=== PATIENT | male | born 1940 | race Caucasian/White ===

== ENCOUNTER → 2020-01-19 | Outpatient (CLI) | payer MEDICARE ==
[2020-01-19 12:21] VITALS: BP 121/59
--- NOTE | 2020-01-19 12:21 | ER [facility] ASSESSMENT REPORT ---
Intake - In the Last 14 days Have you traveled outside [place]?: No Have you been in close contact with someone CONFIRMED: No Worked in Healthcare?: No - Symptoms Subjective Fever([place] feverish): No Chills: No Muscule Aches: Yes Runny Nose: Yes Sore Throat: No Cough (New or worsening chronic cough): No Shortness of breath: No Nausea or Vomiting: No Headache: No Abdominal Pain: No Diarrhea(3 or more loose stools in last 24 hours): No - Do you have any of the following Chronic lung disease: Asthma or emphysema or COPD: No Cystic Fibrosis: No Diabetes: No High Blood Pressure: No Cardiovascular Disease: Yes Chronic Kidney Disease: No Chronic Liver Disease: No Chronic blood disorder like Sickle Cell Disease: No Weak immune system due to disease or medication: Yes Immune System Comment: thyroid Neurologic condition that limits movement: No Developmental delay - Moderate to Severe: No Recent (within past 2 weeks) or current : No Morbid Obesity (>100 pounds over ideal weight): No - Objective Temperature: 98.0 F Pulse Rate: 78 Respiratory Rate: 18 Blood Pressure: 121/59 O2 Sat by Pulse Oximetry: 95 Objective: Given above, testing performed: If Testing Performed: Test Specimen Type Sent to General - General Information source: Patient Notes: She presents to the [facility] for screening for the coronavirus. Patient reports chills body aches for the past 2 days. Patient does have a history of a heart murmur and thyroid disease. Patient is a former smoker. - Related Data Allergies/Adverse Reactions: No Known Allergies Allergy (Unverified 07/26/15 08:29) Past Medical History - General Information source: Patient - Social History Smoking Status: Former Smoker Family History: Reviewed & Not Pertinent - Past Medical History Cardiac Medical History: Denies: Hx Coronary Artery Disease, Hx Heart Attack, Hx Hypertension Pulmonary Medical History: Denies: Hx Asthma, Hx Bronchitis, Hx COPD, Hx Pneumonia Neurological Medical History: Denies: Hx Cerebrovascular Accident, Hx Seizures Renal/ Medical History: Reports: Hx Kidney Stones GI Medical History: Denies: Hx Hepatitis, Hx Hiatal Hernia, Hx Ulcer Musculoskeletal Medical History: Reports Hx Arthritis - osteoarthritis Psychiatric Medical History: Reports: Hx Depression Infectious Medical History: Denies: Hx Hepatitis Past Surgical History: Denies: Hx Open Heart Surgery, Hx Pacemaker Physical Exam - Notes Notes: The patient was evaluated during the global Covid 19 pandemic, and that diagnosis was suspected/considered upon their initial presentation. Their evaluation, treatment and testing was consistent with current guidelines for p atients who present with complaints or symptoms that may be related to Covid 19. Full physical exam could not be performed due to covid 19 isolation protocols. Constitutional: Nontoxic appearance, no acute distress Eyes: Nonicteric, extraocular movements intact, sclera clear Cardiovascular: Heart rate and rhythm regular, no JVD Respiratory: Breath sounds clear bilaterally, nonlabored breathing, no use of accessory muscles, no tachypnea Gastrointestinal: Abdomen not distended Muculoskeletal: Moves all extremities well Skin: Normal color Neuro: Awake alert oriented, normal speech Psych: Normal mood and affect Diagnostic Results Laboratory Results: Patient presents with upper respiratory symptoms worrisome for possible Covid 19. Patient does not have emergency worrying symptoms such as difficulty breathing, shortness of breath, chest pain, pressure, confusion or cyanosis. Patient appears suitable for discharge as vital signs are stable and patient is nontoxic in appearance. Good return precautions have been discussed with patient, patient verbalized understanding and is agreeable with discharge plan of care at this time. Patient Education/Counseling Counseling/Education: Patient was provided with discharge information including: As a person under investigation for Covid 19, the [place] department of Health and Human Services, division of public health advises you to adhere to the following guidance until your test results are reported to you. If your test result is positive, you will receive additional information from your provider and your local health department at that time. Remain at home until you are cleared by the health provider or public health authorities. Keep a log of visitors to your home, notify any visitors to your home of your isolation status. If you plan to move to a new address or leave the county, notify the local health department in your County. Call your doctor or seek care if you have an urgent medical need. Before seeking medical care, call ahead to get instructions from the provider before arriving at the medical office clinic or hospital. Notify them that you are being tested for the virus that causes Covid 19 so that arrangements can be made, as necessary, to prevent transmission to others in the healthcare setting. Next, notify the local health department in your county. If a medical emergency arises and you need to call 911, inform the first responders that you are being tested for the virus that causes Covid 19. Next, notify the local health department in your county. [facility] Discharge - Discharge Clinical Impression: Encounter for screening laboratory testing for COVID-19 virus Condition: Stable Disposition: Home; Selfcare
[2020-01-19 14:46] LABS: A TYPE INFLUENZA AG NEGATIVE (NEGATIVE); B INFLUENZA AG NEGATIVE (NEGATIVE)
== END ==
LOC: RDC 11:39
PROVIDERS: ATTEND Nurse Practitioner Family
DX: Z20.828 Contact with and (suspected) exposure to other viral communicable diseases (principal); R68.83 Chills (without fever); M79.10 Myalgia, unspecified site; R09.89 Other specified symptoms and signs involving the circulatory and respiratory systems; E07.9 Disorder of thyroid, unspecified; R01.1 Cardiac murmur, unspecified; M19.90 Unspecified osteoarthritis, unspecified site; Z87.891 Personal history of nicotine dependence
CPT/HCPCS: 87804; U0003; C9803; 87635

== ENCOUNTER 2020-02-15 18:17 | Observation (INO) | payer MEDICARE ==
--- NOTE | 2020-02-15 18:54 | ER Document Report ---
ED Medical Screen (RME) - General Chief Complaint: Weakness Stated Complaint: WEAKNESS,NECK PAIN Time Seen by Provider: 02/15/20 18:41 Primary Care Provider: CAROL YEE MD [Primary Care Provider] - Follow up as needed Information source: Patient Notes: Patient presents complaining of a 10 pound weight loss over the past 2 months. Patient also reports problems with increased sleepiness. Patient reports decreased appetite and abdominal pain for the past 4 days. Patient reports chills at home and reports temperature of 100.3. Patient also complains of headache and stiff neck for the past 2 to 3 days. 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 Patient did recently test positive for Covid early last month. I have greeted and performed a rapid initial assessment of this patient. A comprehensive ED assessment and evaluation of the patient, analysis of test results and completion of the medical decision making process will be conducted by additional ED providers. TRAVEL OUTSIDE OF THE [place] IN LAST 30 DAYS: No - Related Data Allergies/Adverse Reactions: No Known Allergies Allergy (Unverified 07/26/15 08:29) Past Medical History - Past Medical History Cardiac Medical History: Denies: Hx Coronary Artery Disease, Hx Heart Attack, Hx Hypertension Pulmonary Medical History: Denies: Hx Asthma, Hx Bronchitis, Hx COPD, Hx Pneumonia Neurological Medical History: Denies: Hx Cerebrovascular Accident, Hx Seizures Renal/ Medical History: Reports: Hx Kidney Stones GI Medical History: Denies: Hx Hepatitis, Hx Hiatal Hernia, Hx Ulcer Musculoskeltal Medical History: Reports Hx Arthritis - osteoarthritis Psychiatric Medical History: Reports: Hx Depression Infectious Medical History: Denies: Hx Hepatitis Past Surgical History: Denies: Hx Open Heart Surgery, Hx Pacemaker - Immunizations Hx Diphtheria, Pertussis, Tetanus Vaccination: Yes Physical Exam - Vital signs Vitals: Temp Pulse Resp BP Pulse Ox 98.5 F 120 H 18 141/57 H 98 02/15/20 18:24 02/15/20 18:24 02/15/20 18:24 02/15/20 18:24 02/15/20 18:24 - General General appearance: Alert Notes: periumbilical tenderness, patient with full range of motion to the neck Course - Vital Signs Vital signs: Temp Pulse Resp BP Pulse Ox 98.5 F 120 H 18 141/57 H 98 02/15/20 18:24 02/15/20 18:24 02/15/20 18:24 02/15/20 18:24 02/15/20 18:24 Doctor's Discharge - Discharge Referrals: CAROL YEE MD [Primary Care Provider] - Follow up as needed
--- NOTE | 2020-02-15 19:35 | RADIOLOGY REPORT (SQ) ---
EXAM DESCRIPTION: ACUTE ABDOMEN SERIES IMAGES COMPLETED DATE/TIME: 02/15/2020 7:18 pm REASON FOR STUDY: abd pain, tachycardia, wt loss, hx covid COMPARISON: 10/26/2012 NUMBER OF VIEWS: Three views. TECHNIQUE: Frontal chest, supine abdomen and upright/decubitus abdomen radiographic images acquired. LIMITATIONS: None. FINDINGS: CHEST: Lungs clear of infiltrates. FREE AIR: None. No abnormal gas collections. BOWEL GAS PATTERN: No definite pathologically dilated loops of bowel. Nonspecific bowel gas pattern. Formed stool throughout the colon. CALCIFICATIONS: Likely bilateral renal stones. Largest on the left measuring approximately 7 mm. HARDWARE: Surgical clips overlie bilateral upper abdomen. Chain elizabeth the hemiabdomen. Ovoid dens ity overlies left hemipelvis, likely ingested pill. SOFT TISSUES: No gross mass or suggestion of organomegaly. BONES: No acute bony abnormality. Lower lumbar spondylosis and facet arthropathy. OTHER: No other significant finding. IMPRESSION: 1. No evidence of intestinal obstruction or other acute intra-abdominal process. 2. Formed stool throughout the colon suggestive of constipation. TECHNICAL DOCUMENTATION: JOB ID: [id number] 2010 [employer]- All Rights Reserved Reading location - IP/workstation name: [email or web address]
[2020-02-15 21:02] LABS: ABSOLUTE BASOPHILS # (AUTO) 0.1 10^3/uL (0.0-0.2); ABSOLUTE EOSINOPHILS # (AUTO) 0.1 10^3/uL (0.0-0.6); ABSOLUTE LYMPHOCYTES (AUTO) 0.9 10^3/uL (0.5-4.7); ABSOLUTE MONOCYTES (AUTO) 0.7 10^3/uL (0.1-1.4); ABSOLUTE NEUT (AUTO) 5.8 10^3/uL (1.7-8.2); BASOPHILS % (AUTO) 1.1 % (0-2); EOSINOPHILS % (AUTO) 1.4 % (0-6); HEMATOCRIT 37.7 % (37.9-51.0); HEMOGLOBIN 12.5 g/dL (13.5-17.0); MEAN CORPUSCULAR HEMOGLOBIN 32.6 pg (27.0-33.4); MEAN CORPUSCULAR HGB CONC 33.2 g/dL (32.0-36.0); MEAN CORPUSCULAR VOLUME 98 fl (80-97); MONOCYTES % (AUTO) 8.6 % (3-13); PLATELET COUNT 191 10^3/uL (150-450); RED BLOOD COUNT 3.84 10^6/uL (4.35-5.55); RED CELL DISTRIBUTION WIDTH 13.8 % (11.5-14.0); SEGMENTED NEUTROPHILS % (AUTO) 76.9 % (42-78); TOTAL CELLS COUNTED % (AUTO) 100 %; WHITE BLOOD COUNT 7.6 10^3/uL (4.0-10.5)
[2020-02-15] MEDS ORDERED: ACETAMINOPHEN 325 MG TABLET PO ONE (21:06)
[2020-02-15] MEDS ORDERED: RINGERS SOLUTION,LACTATED 500 ML IV ONE (21:15)
--- NOTE | 2020-02-15 21:15 | ER Document Report ---
ED Dizziness/Weakness - General Chief Complaint: Weakness Stated Complaint: WEAKNESS,NECK PAIN Time Seen by Provider: 02/15/20 18:41 Primary Care Provider: CAROL YEE MD [Primary Care Provider] - Follow up as needed Notes: Patient is a 80-year-old male who presents to the emergency department with the chief complaint of generalized weakness and generally not feeling well. Patient also reports neck pain and head pain. Patient states that he had a symptoms about a week ago. About a month ago, the patient was diagnosed with COVID-19. Patient states that he only had chills at that time. Patient states that over the past 3 days, he has had a decreased appetite. States that he has not been eating or drinking as much as he should. Patient has a history of hypertension, bladder cancer, heart murmur and gastric bypass surgery. Patient states that his neck pain feels similar to when he had viral meningitis. Patient also has history of kidney stones. He denies any back pain. TRAVEL OUTSIDE OF THE [place] IN LAST 30 DAYS: No - Related Data Allergies/Adverse Reactions: No Known Allergies Allergy (Verified 02/15/20 20:55) Past Medical History - General Information source: Patient - Social History Smoking Status: Never Smoker Family History: Reviewed & Not Pertinent Patient has homicidal ideation: No - Past Medical History Cardiac Medical History: Denies: Hx Coronary Artery Disease, Hx Heart Attack, Hx Hypertension Pulmonary Medical History: Denies: Hx Asthma, Hx Bronchitis, Hx COPD, Hx Pneumonia Neurological Medical History: Denies: Hx Cerebrovascular Accident, Hx Seizures Renal/ Medical History: Reports: Hx Kidney Stones GI Medical History: Denies: Hx Hepatitis, Hx Hiatal Hernia, Hx Ulcer Musculoskeletal Medical History: Reports Hx Arthritis - osteoarthritis Psychiatric Medical History: Reports: Hx Depression Infectious Medical History: Denies: Hx Hepatitis Past Surgical History: Denies: Hx Open Heart Surgery, Hx Pacemaker - Immunizations Hx Diphtheria, Pertussis, Tetanus Vaccination: Yes Hx Pneumococcal Vaccination: 01/12/10 Review of Systems - Review of Systems Notes: REVIEW OF SYSTEMS: CONSTITUTIONAL : See HPI. EENT: Denies eye, ear, throat, or mouth pain, discharge, or symptoms. Denies nasal or sinus congestion. CARDIOVASCULAR: Denies chest pain. RESPIRATORY: See HPI. GASTROINTESTINAL: Denies nausea, vomiting, and diarrhea. Denies abdominal pain. Denies constipation. GENITOURINARY: Denies difficulty urinating, burning, blood in urine, urgency or frequency. MUSCULOSKELETAL: Denies neck and back pain. Denies joint pain or swelling. SKIN: Denies rash, itchiness, or lesions HEMATOLOGIC : Denies easy bruising or bleeding. LYMPHATIC: Denies swollen, painful, enlarged glands. NEUROLOGICAL: Denies no numbness or tingling denies weakness. Denies headache. Denies altered mental status. Denies alteration in speech. PSYCHIATRIC: Denies stress, anxiety, alteration in sleep patterns, or depression. All other systems reviewed and negative. Physical Exam - Vital signs Vitals: Temp Pulse Resp BP Pulse Ox 98.5 F 120 H 18 141/57 H 98 02/15/20 18:24 02/15/20 18:24 02/15/20 18:24 02/15/20 18:24 02/15/20 18:24 - Notes Notes: PHYSICAL EXAMINATION: GENERAL: Appears cachectic, no acute distress. HEAD: Normocephalic, atraumatic. EYES: PERRL, conjunctiva normal, all extraocular movements intact, sclera nonicteric ENT: Moist mucous membranes. NECK: Supple, no noticeable swelling, redness, rash. Normal range of motion. LUNGS: Equal breath sounds bilaterally and clear to auscultation. No wheezes rales or rhonchi. CARDIOVASCULAR: S1-S2, regular rate, regular rhythm. Radial pulses 2+, normal. ABDOMEN: Normoactive bowel sounds. Soft, nontender, no guarding, no rebound tenderness, and no masses palpated. EXTREMITIES: Normal strength and range of motion, no pitting or edema. No cyanosis. NEUROLOGICAL: Moves all extremities upon command. Strength 5/5 in all extremities. PSYCH: Normal mood, normal affect. SKIN: Warm, dry. No rash, lesions, ulcerations noted. Normal skin turgor. Course - Re-evaluation Re-evalutation: 02/16/20 01:25 CT of the abdomen pelvis shows that the patient has an obstructing kidney stone.It is 1.2 cm inside. And it is in the left distal ureter. He has some hydronephrosis. CT of the head shows no acute intracranial abnormalities. 02/16/20 01:53 Dr. Guo evaluated the patient and she does not believe that the patient needs a lumbar puncture. She agrees that it would be appropriate to have the patient observed overnight in the hospital. Will call the hospitalist. 02/16/20 02:40 Dr. Haney at bedside. The patient will be admitted for observation. The patient was evaluated during the global COVID-19 pandemic and that diagnosis was suspected/considered upon their initial presentation. Their evaluation, treatment and testing was consistent with current guidelines for patients who present with complaints or symptoms that may be related to COVID-19. - Vital Signs Vital signs: Temp Pulse Resp BP Pulse Ox 98.5 F 92 8 L 121/66 97 02/15/20 18:24 02/15/20 21:07 02/15/20 22:01 02/15/20 22:01 02/15/20 22:01 - Laboratory Result Diagrams: 02/15/20 20:44 02/15/20 20:44 Laboratory results interpreted by me: 02/15/20 02/15/20 02/15/20 20:44 20:44 20:44 RBC 3.84 L Hgb 12.5 L Hct 37.7 L MCV 98 H Lymph % (Auto) 12.0 L Potassium 5.1 H Chloride 108 H Carbon Dioxide 16 L BUN 35 H Creatinine 1.69 H Est GFR ( Amer) 48 L Est GFR (MDRD) Non-Af 39 L Magnesium 2.6 H TSH 7.00 H Free T4 0.66 L Free T3 pg/mL 1.87 L Urine Protein 02/15/20 21:56 RBC Hgb Hct MCV Lymph % (Auto) Potassium Chloride Carbon Dioxide BUN Creatinine Est GFR ( Amer) Est GFR (MDRD) Non-Af Magnesium TSH Free T4 Free T3 pg/mL Urine Protein 30 H Discharge - Discharge Clinical Impression: Weakness, Neck pain, Suspected COVID-19 virus infection Condition: Stable Disposition: ADMITTED OBSERVATION Admitting Provider: Dr. Jones Unit Admitted: Medical Floor - COVID test Referrals: CAROL YEE MD [Primary Care Provider] - Follow up as needed
[2020-02-15 21:16] LABS: ALBUMIN 4.3 g/dL (3.5-5.0); ALKALINE PHOSPHATASE 106 U/L (38-126); ANION GAP 13 (5-19); ASPARTATE AMINO TRANSFERASE 43 U/L (17-59); BILIRUBIN,DIRECT 0.2 mg/dL (0.0-0.4); BILIRUBIN,TOTAL 0.5 mg/dL (0.2-1.3); BLOOD UREA NITROGEN 35 mg/dL (7-20); CALCIUM 9.1 mg/dL (8.4-10.2); CARBON DIOXIDE 16 mmol/L (22-30); CHLORIDE 108 mmol/L (98-107); GLUCOSE 104 mg/dL (75-110); POTASSIUM 5.1 mmol/L (3.6-5.0); TOTAL PROTEIN 7.6 g/dL (6.3-8.2)
[2020-02-15 21:34] LABS: FREE T3 1.87 pg/mL (2.77-5.27); FREE T4 (FREE THYROXINE) 0.66 ng/dL (0.78-2.19)
[2020-02-15 22:11] LABS: APPEARANCE,URINE SLIGHTLY-CLOUDY; BILIRUBIN,URINE NEGATIVE (NEGATIVE); CALCIUM OXALATE CRYSTALS,URINE MODERATE /HPF; COLOR,URINE YELLOW; GLUCOSE, URINE NEGATIVE (NEGATIVE); KETONES,URINE NEGATIVE (NEGATIVE); LEUKOCYTE ESTERASE,URINE NEGATIVE (NEGATIVE); NITRITE,URINE NEGATIVE (NEGATIVE); PROTEIN,URINE 30 mg/dL (NEGATIVE); URINE SPECIFIC GRAVITY 1.016; UROBILINOGEN,URINE NEGATIVE mg/dL (<2.0)
--- NOTE | 2020-02-16 00:03 | RADIOLOGY REPORT (SQ) ---
CLINICAL INDICATION: abdominal pain; hx of bladder CA. . TECHNIQUE: Contrast enhanced spiral axial CT imaging was obtained of the abdomen and pelvis with multiplanar reconstructions. This exam was performed according to our departmental dose-optimization program, which includes automated exposure control, adjustment of the mA and/or kV according to patient size and/or use of iterative reconstruction techniques. COMPARISON: November 21, 2010. CORRELATION: None. FINDINGS: Abdomen: The lung bases definite chronic changes. No acute process. The heart is enlarged with coronary calcification. Calcified mediastinal lymph nodes. No pleural or pericardial fluid. The liver is homogeneous. The gallbladder is surgically absent. The pancreas is poorly seen but appears be of grossly normal contour. The spleen demonstrate old granulomatous disease. The adrenals are unremarkable. The kidneys demonstrate nonobstructing nephrolithiasis bilaterally, similar to prior. Largest calculus is seen on the left measuring approximately 6 mm, similar to prior. Normal right nephrogram. Delayed left nephrogram. New left hydronephrosis and hydroureter secondary to a large obstructing calculus distal left ureter just proximal to the UVJ measuring 1.2 cm, series 3 image 68. Tiny bladder calculus. There is no evidence of free air. No free fluid. No bulky adenopathy. Abdominal aorta is nonaneurysmal. Pelvis: The bowel is nonobstructed. The bowel is unopacified with oral contrast. Pelvic contents demonstrate enlargement of the prostate measuring 6.1 x 6.5 cm (previously 5.6 x 6.0 cm).. The appendix is not seen. Significant hard stool throughout the colon. Visualized bones demonstrate age-appropriate osteoarthritis. IMPRESSION: 1.2 cm obstructing calculus distal left ureter with moderate hydronephrosis hydroureter and a delayed nephrogram Progressive enlargement of the prostate.
[2020-02-16 00:13] LABS: A TYPE INFLUENZA AG NEGATIVE (NEGATIVE); B INFLUENZA AG NEGATIVE (NEGATIVE)
--- NOTE | 2020-02-16 01:13 | RADIOLOGY REPORT (SQ) ---
EXAM DESCRIPTION: CT HEAD WITHOUT IV CONTRAST COMPLETED DATE/TME: 02/15/2020 23:56 CLINICAL INDICATION: 80-year-old male with weakness. COMPARISON: None. TECHNIQUE: CT brain without contrast. This exam was performed according to our departmental dose optimization program which includes use of automated exposure control, adjustment of the mA and/or kV according to patient size and/or use of iterative reconstruction technique. FINDINGS: Multifocal regions of patchy hypoattenuation are present in a subcortical and periventricular deep white matter distribution, nonspecific; however, most likely represent small vessel ischemic disease, age indeterminate. The ventricles, sulci, and cisterns are symmetric and unremarkable. The modi-white matter differentiation is preserved. There is no mass effect, midline shift, intra- or extra-axial fluid collection/acute hemorrhage. The osseous structures are unremarkable. The paranasal sinuses and mastoid air cells are clear. IMPRESSION: 1. No acute intracranial abnormalities. Nonspecific white matter change most likely small vessel ischemic disease, age indeterminate. 2. CT is insensitive for early evaluation of acute stroke. If there is clinical concern for acute ischemia, an MRI may be considered.
[2020-02-16] MEDS ORDERED: ONDANSETRON HCL INJ/PF 4 MG/2 ML SDV IV PRN (02:46)
[2020-02-16] MEDS ORDERED: ACETAMINOPHEN 325 MG TABLET PO PRN (02:46)
[2020-02-16] MEDS: RINGERS SOLUTION,LACTATED 1,000 ML IV PRN ×3 (03:17→23:40)
[2020-02-16] MEDS: HEPARIN SOD (PORCINE) 5,000 UNIT/ML 1 ML VIAL SUBCUT SCH ×3 (06:03→21:48)
--- NOTE | 2020-02-16 07:37 | PDOC H&P ---
History of Present Illness Admission Date/PCP: 02/16/20 02:57 CAROL YEE MD Patient complains of: Generalized weakness, poor appetite, diarrhea History of Present Illness: EMI QUAN is a 80 year old male with a history of hypertension, depression and gastric bypass surgery who recently was diagnosed with COVID-19 about a month ago now presents with 1 week duration of generalized body weakness associated decreased appetite, nausea and few episodes of vomiting of ingested matter. Patient also reports that he has had 3 episodes of watery diarrhea which which has been for the past 24 hours. He states that he stayed in self- isolation with symptomatic management for 2 weeks following diagnosis of COVID- 19 and he reports he was seen closely for more than 2 weeks and was given clearance by health department 2 weeks back. Currently he denies any cough, shortness of breath, chest pain, fever, chills. Past Medical History Cardiac Medical History: Denies: Coronary Artery Disease, Myocardial Infarction, Hypertension Pulmonary Medical History: Denies: Asthma, Bronchitis, Chronic Obstructive Pulmonary Disease (COPD), Pneumonia Neurological Medical History: Denies: Seizures GI Medical History: Denies: Hepatitis, Hiatal Hernia Musculoskeltal Medical History: Reports: Arthritis - osteoarthritis Psychiatric Medical History: Reports: Depression Hematology: Reports: Anemia - BARIATRIC SURGERY Denies: Sickle Cell Disease Past Surgical History Past Surgical History: Denies: Pacemaker Social History Information Source: Patient Smoking Status: Never Smoker Hx Recreational Drug Use: No Hx Prescription Drug Abuse: No - Advance Directive Resuscitation Status: Full Code Family History Family History: Reviewed & Not Pertinent Parental Family History Reviewed: Yes Children Family History Reviewed: Yes Sibling(s) Family History Reviewed.: Yes Medication/Allergy Home Medications: Bupropion HCl [Wellbutrin Sr 150 mg Tablet] 1 tab PO Q12 07/09/14 Levothyroxine Sodium [Synthroid 0.112 mg Tablet] 112 mcg PO DAILY 07/09/14 Meloxicam [Mobic 15 mg Tablet] 15 mg PO DAILY 07/20/15 Omeprazole 20 mg PO DAILY 07/20/15 Sertraline HCl [Zoloft] 100 mg PO DAILY 07/20/15 Sod/Pot/K Cit/Sod Cit/Cit Acid [Tricitrates Oral Solution] 5 ml PO DAILY 07/20/15 Allergies/Adverse Reactions: No Known Allergies Allergy (Verified 02/15/20 20:55) Review of Systems Constitutional: PRESENT: as per HPI Eyes: ABSENT: visual disturbances Ears: ABSENT: hearing changes Nose, Mouth, and Throat: ABSENT: as per HPI, headache(s), mouth pain, sore throat, vertigo, other Cardiovascular: ABSENT: chest pain, dyspnea on exertion, edema, orthropnea, palpitations Respiratory: ABSENT: cough, hemoptysis Gastrointestinal: PRESENT: as per HPI Genitourinary: ABSENT: dysuria, hematuria Musculoskeletal: ABSENT: joint swelling Integumentary: ABSENT: rash, wounds Neurological: ABSENT: abnormal gait, abnormal speech, confusion, dizziness, focal weakness, syncope Psychiatric: ABSENT: anxiety, depression, homidical ideation, suicidal ideation Endocrine: ABSENT: cold intolerance, heat intolerance, polydipsia, polyuria Hematologic/Lymphatic: ABSENT: easy bleeding, easy bruising Physical Exam Vital Signs: Temp Pulse Resp BP Pulse Ox 98.5 F 92 8 L 121/66 97 02/15/20 18:24 02/15/20 21:07 02/15/20 22:01 02/15/20 22:01 02/15/20 22:01 Intake & Output 02/14/20 02/15/20 02/16/20 06:59 06:59 06:59 Intake Total 500 Balance 500 Weight 51.5 kg Additional comments: GENERAL APPEARANCE: Alert and oriented x3, in no acute distress HEENT: Normocephalic and atraumatic. No scleral icterus. Dry oral mucosa NECK: Supple. No evidence of thyroid enlargement. No lymphadenopathy or tenderness. No JVD CHEST: Symmetric. Nontender to palpation. LUNGS: Breath sounds are equal and clear bilaterally. No wheezes, rhonchi, or rales. HEART: Regular rate and rhythm with normal S1 and S2. Heart +2 diastolic murmur best heard at apex ABDOMEN: Flat, moves with respiration, normoactive bowel sounds, soft, nontender, no guarding or rigidity No mass or organomegaly detected. No CVA tenderness EXTREMITIES: No cyanosis, clubbing, or edema. MUSCULOSKELETAL: No deformity, atrophy or swelling noted PSYCHIATRIC: The patient is awake, alert, and oriented x3. Recent and remote memory is intact. Appropriate mood and affect. SKIN: Warm, dry, and well perfused. No lesions or rashes are noted. NEUROLOGIC: No focal sensory or motor deficits are noted. Results Laboratory Results: 02/15/20 20:44 02/15/20 20:44 02/15/20 02/15/20 02/15/20 20:44 20:44 20:44 WBC 7.6 RBC 3.84 L Hgb 12.5 L Hct 37.7 L MCV 98 H MCH 32.6 MCHC 33.2 RDW 13.8 Plt Count 191 Seg Neutrophils % 76.9 Sodium 137.0 Potassium 5.1 H Chloride 108 H Carbon Dioxide 16 L Anion Gap 13 BUN 35 H Creatinine 1.69 H Est GFR ( Amer) 48 L Glucose 104 Calcium 9.1 Magnesium 2.6 H Total Bilirubin 0.5 AST 43 Alkaline Phosphatase 106 Total Protein 7.6 Albumin 4.3 Lipase 197.6 TSH 7.00 H Free T4 0.66 L Free T3 pg/mL 1.87 L Urine Color Urine Appearance Urine pH Ur Specific [place] Urine Protein Urine Glucose (UA) Urine Ketones Urine Blood Urine Nitrite Ur Leukocyte Esterase Urine WBC (Auto) 02/15/20 21:56 WBC RBC Hgb Hct MCV MCH MCHC RDW Plt Count Seg Neutrophils % Sodium Potassium Chloride Carbon Dioxide Anion Gap BUN Creatinine Est GFR ( Amer) Glucose Calcium Magnesium Total Bilirubin AST Alkaline Phosphatase Total Protein Albumin Lipase TSH Free T4 Free T3 pg/mL Urine Color YELLOW Urine Appearance SLIGHTLY-CLOUDY Urine pH 5.0 Ur Specific [place] 1.016 Urine Protein 30 H Urine Glucose (UA) NEGATIVE Urine Ketones NEGATIVE Urine Blood NEGATIVE Urine Nitrite NEGATIVE Ur Leukocyte Esterase NEGATIVE Urine WBC (Auto) 1 02/15/20 20:44 Troponin I 0.016 Impressions: Acute Abdomen Series 02/15/20 18:55 IMPRESSION: 1. No evidence of intestinal obstruction or other acute intra- abdominal process. 2. Formed stool throughout the colon suggestive of constipation. Abdomen/Pelvis CT 02/15/20 22:16 IMPRESSION: 1.2 cm obstructing calculus distal left ureter with moderate hydronephrosis hydroureter and a delayed nephrogram Progressive enlargement of the prostate. Head CT 02/15/20 23:56 IMPRESSION: 1. No acute intracranial abnormalities. Nonspecific white matter change most likely small vessel ischemic disease, age indeterminate. 2. CT is insensitive for early evaluation of acute stroke. If there is clinical concern for acute ischemia, an MRI may be considered. Assessment and Plan - Diagnosis (1) Acute kidney injury Is this a current diagnosis for this admission?: Yes Plan: Likely prerenal from GI loss due to nausea vomiting and diarrhea and poor oral intake BUN/creatinine on this encounter was 35/1.68, last creatinine in 2018 was normal We will hydrate with IV LR Avoid nephrotoxic's and renally dose medications Monitor renal indicis (2) Metabolic acidosis Is this a current diagnosis for this admission?: Yes Plan: Anion gap metabolic acidosis likely due to diarrhea Will correct underlying cause with IV hydration Continue to monitor BMP (3) History of 2019 novel coronavirus disease (COVID-19) Is this a current diagnosis for this admission?: Yes Plan: Patient had positive COVID-19 test a months ago Currently has no any respiratory symptoms Will continue supportive measures On the special enhanced airborne isolation (4) Ureteral calculus, left Is this a current diagnosis for this admission?: Yes Plan: CT abdomen showed a 1.2 cm nonobstructing left ureteral calculus with moderate hydronephrosis Due to the size being greater than 1 cm, will consider referral to urology on discharge (5) Heart murmur Is this a current diagnosis for this admission?: Yes Plan: Has audible +2 diastolic murmur best heard at apex Consider outpatient echocardiography if not already done by PCP Continue follow-up with outside cardiology - Time Time Spent with patient: 25-34 minutes Total Critical Time (Minutes): 45 Medications reviewed and adjusted accordingly: Yes Anticipated Discharge Disposition: Home, Self Care Anticipated Discharge Timeframe: within 48 hours - Inpatient Certification Based on my medical assessment, after consideration of the patient's comorbidities, presenting symptoms, or acuity I expect that the services needed warrant INPATIENT care.: Yes I certify that my determination is in accordance with my understanding of Medicare's requirements for reasonable and necessary INPATIENT services [42 CFR 412.3e].: Yes Medical Necessity: Need Close Monitoring Due to Risk of Patient Decompensation, Need For IV Fluids Post Hospital Care: D/C or Transfer Summary
[2020-02-16 07:38] LABS: ANION GAP 12 (5-19); BLOOD UREA NITROGEN 35 mg/dL (7-20); CARBON DIOXIDE 17 mmol/L (22-30); CHLORIDE 110 mmol/L (98-107); GLUCOSE 84 mg/dL (75-110); POTASSIUM 4.6 mmol/L (3.6-5.0)
[2020-02-16] MEDS ORDERED: FAMOTIDINE 20 MG TABLET PO SCH (10:00)
[2020-02-16] MEDS: FAMOTIDINE 20 MG TABLET PO SCH (11:18)
--- NOTE | 2020-02-16 17:14 | Progress Note ---
Provider Note Provider Note: Patient was seen by me on morning rounds. His main complaint was that he is experiencing a sharp shooting pain in the left advent region that lasts approximately 1 minute in duration and returns hourly. Denies change in vision or hearing. Does note some neck pain but demonstrates full ROM without meningeal signs on exam. On labs his TSH was found to be elevated with low Free T4. He has hx of hypothyroidism currently treated with Levothyroxine 125mcg daily. Reports compliance with medication daily. Increased dose to 150mcg daily. Suspect this may be contributing to presenting symptoms of generalized weakness.
--- NOTE | 2020-02-16 19:03 | EKG REPORT ---
SEVERITY:- ABNORMAL ECG - SINUS RHYTHM RBBB AND LAFB : Confirmed by: Bennett Bello MD 16-Feb-2020 19:02:49
[2020-02-16] MEDS: BUPROPION HCL 100 MG TABLET PO SCH (21:48)
[2020-02-17] MEDS: HEPARIN SOD (PORCINE) 5,000 UNIT/ML 1 ML VIAL SUBCUT SCH ×2 (05:09→14:06)
[2020-02-17] MEDS: BUPROPION HCL 100 MG TABLET PO SCH ×2 (05:10→14:06)
[2020-02-17] MEDS ORDERED: LEVOTHYROXINE SODIUM 0.15 MG TABLET PO SCH (06:00)
[2020-02-17] MEDS: RINGERS SOLUTION,LACTATED 1,000 ML IV PRN ×2 (06:40→14:06)
[2020-02-17 08:42] LABS: HEMATOCRIT 31.6 % (37.9-51.0); HEMOGLOBIN 10.5 g/dL (13.5-17.0); MEAN CORPUSCULAR HEMOGLOBIN 31.8 pg (27.0-33.4); MEAN CORPUSCULAR HGB CONC 33.3 g/dL (32.0-36.0); MEAN CORPUSCULAR VOLUME 96 fl (80-97); PLATELET COUNT 185 10^3/uL (150-450); RED BLOOD COUNT 3.31 10^6/uL (4.35-5.55); RED CELL DISTRIBUTION WIDTH 13.5 % (11.5-14.0); WHITE BLOOD COUNT 7.2 10^3/uL (4.0-10.5)
[2020-02-17 09:06] LABS: ANION GAP 8 (5-19); BLOOD UREA NITROGEN 29 mg/dL (7-20); CALCIUM 8.5 mg/dL (8.4-10.2); CARBON DIOXIDE 21 mmol/L (22-30); CHLORIDE 110 mmol/L (98-107); GLUCOSE 91 mg/dL (75-110); POTASSIUM 4.3 mmol/L (3.6-5.0)
[2020-02-17] MEDS: FAMOTIDINE 20 MG TABLET PO SCH (09:11)
[2020-02-17] MEDS ORDERED: FLUTICASONE NASAL SPRAY 50 MCG/SPRY 120 SPRAY/16 GM NASL SCH (10:00)
[2020-02-17] MEDS ORDERED: PANTOPRAZOLE SODIUM 20 MG TABLET.DR PO SCH (10:00)
[2020-02-17] MEDS ORDERED: CETIRIZINE 10 MG TABLET PO SCH (10:00)
[2020-02-17] MEDS ORDERED: AMLODIPINE BESYLATE 5 MG TABLET PO SCH (10:00)
[2020-02-17] MEDS ORDERED: MELOXICAM 15 MG TABLET PO SCH (10:00)
[2020-02-17] MEDS ORDERED: SERTRALINE HCL 50 MG TABLET PO SCH (10:00)
[2020-02-17] MEDS ORDERED: SERTRALINE HCL 250 MG PO SCH (10:00)
[2020-02-17] MEDS ORDERED: NORMAL SALINE 1000 ML 1,000 ML IV ONE (11:57)
--- NOTE | 2020-02-17 16:27 | PDOC DISCHARGE SUMMARY ---
Impression - Admit/DC Date/PCP Admission Date/Primary Care Provider: 02/16/20 02:57 CAROL YEE MD Discharge Date: 02/17/20 - Discharge Diagnosis (1) Hypothyroidism Is this a current diagnosis for this admission?: Yes (2) Weight loss Is this a current diagnosis for this admission?: Yes (3) Acute kidney injury Is this a current diagnosis for this admission?: Yes (4) History of 2019 novel coronavirus disease (COVID-19) Is this a current diagnosis for this admission?: Yes (5) Metabolic acidosis Is this a current diagnosis for this admission?: Yes (6) Ureteral calculus, left Is this a current diagnosis for this admission?: Yes (7) Weakness Is this a current diagnosis for this admission?: Yes - Assessment Summary: Shante Lane is a 80 year old male with PMHx of HTN, dperession, and hypothyroidism who was admitted to the hospital on 02/16/2020 for observation and further treatment of dehydration, acute kidney injury and metabolic acidosis. Patient initially presented with concerns regarding a one week history of generalized weakness with associated decreased appetite, nausea and emesis. 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 He also notes recent increase in looser stools though not liquid. Of note pt with history of positive COVID-19 test x1 month ago with mild symptoms, not requiring hospitalization and complete resolution of symptoms >2 weeks ago. Pt presentation without concern for current COVID infection. Abdomen/Pelvis CT notable for ureteral calculus, otherwise normal. Ct head without acute findings. Over course of hospitalization he received intravenous fluids with noted improvement in [place], metabolic acidosis and symptoms overall. Today reports baseline bowel movements, improvement in appetite, increase in overall energy and denies nausea or vomiting. Interestingly on admission he was found to have elevated TSH (7.0) and low FT4 (0.66). Pt with history of hypothyroidism with recent increase in dose x2 months to current dose of Levothyroxine .125mcg daily. Increased dose to Levothyroxine .150mcg daily. This may be a cause of his generalized weakness. Patient is to follow up with PCP for repeat thyroid studies and further adjustment of therapy as needed. Otherwise overall improvment in patient's symptoms at this time. He is cleared for discharge and happy to be going home. - Additional Information Resuscitation Status: Do Not Resuscitate Discharge Diet: Regular Discharge Activity: Activity As Tolerated Referrals: CAROL YEE MD [Primary Care Provider] - Follow up as needed Prescriptions: Levothyroxine Sodium [Synthroid 0.15 mg Tablet] 0.15 mg PO Q6AM #30 tablet Home Medications: Meloxicam [Mobic 15 mg Tablet] 15 mg PO DAILY 07/20/15 Omeprazole 20 mg PO DAILY 07/20/15 Sertraline HCl [Zoloft] 250 mg PO DAILY 07/20/15 Amlodipine Besylate [Norvasc 5 mg Tablet] 5 mg PO DAILY 02/16/20 B-Complex with Vitamin C [B-Complex with C] 1 each PO DAILY 02/16/20 Bupropion HCl [Wellbutrin 100 mg Tablet] 100 mg PO Q8 02/16/20 Calcitriol [Rocaltrol 0.25 mcg Capsule] 0.25 mcg PO DAILY 02/16/20 Calcium Carbonate/Vitamin D3 [Qc Calcium 600-Vit D3 400 Tab] 1 each PO DAILY 02/16/20 Cetirizine HCl [Zyrtec 10 mg Tablet] 10 mg PO DAILY 02/16/20 Fluticasone Propionate [Flonase Nasal [place] 50 Mcg/[place] 16 gm] 1 spray NASL DAILY 02/16/20 Multivit-Min/FA/Lycopen/Lutein [Men 50 Plus Multivitamin Tab] 1 each PO DAILY 02/16/20 Pyridoxine HCl (Vitamin B6) [Pyridoxine HCl] 50 mg PO DAILY 02/16/20 Tamsulosin HCl [Flomax] 0.4 mg PO DAILY 02/16/20 Tolterodine Tartrate [Tolterodine Tartrate ER] 4 mg PO DAILY 02/16/20 Zinc [Zinc Chelated] 50 mg PO DAILY 02/16/20 Levothyroxine Sodium [Synthroid 0.15 mg Tablet] 0.15 mg PO Q6AM #30 tablet 02/17/20 History of Present Illiness History of Present Illness: As per admitting HPI on 02/16/2020 "EMI QUAN is a 80 year old male with a history of hypertension, depression and gastric bypass surgery who recently was diagnosed with COVID-19 about a month ago now presents with 1 week duration of generalized body weakness associated decreased appetite, nausea and few episodes of vomiting of ingested matter. Patient also reports that he has had 3 episodes of watery diarrhea which which has been for the past 24 hours. He states that he stayed in self-isolation with symptomatic management for 2 weeks following diagnosis of COVID-19 and he reports he was seen closely for more than 2 weeks and was given clearance by health department 2 weeks back. Currently he denies any cough, shortness of breath, chest pain, fever, chills." Physical Exam Vital Signs: Temp Pulse Resp BP Pulse Ox 97.3 F 69 21 H 120/61 98 02/17/20 13:33 02/17/20 13:33 02/17/20 13:33 02/17/20 13:33 02/17/20 13:33 Intake & Output 02/16/20 02/17/20 02/18/20 06:59 06:59 06:59 Intake Total 865 3135 1935 Output Total 1425 200 Balance 865 1710 1735 Weight 51.5 kg 53.7 kg 56.5 kg General appearance: PRESENT: no acute distress, cooperative, well-developed Head exam: PRESENT: atraumatic, normocephalic Eye exam: PRESENT: conjunctiva pink, EOMI. ABSENT: scleral icterus Mouth exam: PRESENT: moist, tongue midline Neck exam: PRESENT: full ROM. ABSENT: JVD, lymphadenopathy, tenderness Respiratory exam: PRESENT: clear to auscultation nicole, symmetrical, unlabored. ABSENT: crackles, decreased breath sounds, tachypnea, wheezes Cardiovascular exam: PRESENT: diastolic murmur - 2+ at apex, RRR, +S1, +S2. ABSENT: systolic murmur, tachycardia GI/Abdominal exam: PRESENT: normal bowel sounds, soft. ABSENT: distended, firm, tenderness Extremities exam: PRESENT: full ROM. ABSENT: calf tenderness, clubbing, pedal edema Musculoskeletal exam: PRESENT: ambulatory, full ROM. ABSENT: deformity, dislocation Neurological exam: PRESENT: alert, awake, oriented to person, oriented to place, oriented to time, oriented to situation, CN II-XII grossly intact. ABSENT: altered, motor sensory deficit Psychiatric exam: PRESENT: appropriate affect, normal mood Skin exam: PRESENT: dry, intact, warm. ABSENT: rash, skin tears Results Laboratory Results: WBC 7.2 10^3/uL (4.0-10.5) 02/17/20 08:13 RBC 3.31 10^6/uL (4.35-5.55) L 02/17/20 08:13 Hgb 10.5 g/dL (13.5-17.0) L 02/17/20 08:13 Hct 31.6 % (37.9-51.0) L 02/17/20 08:13 MCV 96 fl (80-97) 02/17/20 08:13 MCH 31.8 pg (27.0-33.4) 02/17/20 08:13 MCHC 33.3 g/dL (32.0-36.0) 02/17/20 08:13 RDW 13.5 % (11.5-14.0) 02/17/20 08:13 Plt Count 185 10^3/uL (150-450) 02/17/20 08:13 Lymph % (Auto) 12.0 % (13-45) L 02/15/20 20:44 [place] % (Auto) 8.6 % (3-13) 02/15/20 20:44 Eos % (Auto) 1.4 % (0-6) 02/15/20 20:44 Baso % (Auto) 1.1 % (0-2) 02/15/20 20:44 Absolute Neuts (auto) 5.8 10^3/uL (1.7-8.2) 02/15/20 20:44 Absolute Lymphs (auto) 0.9 10^3/uL (0.5-4.7) 02/15/20 20:44 Absolute Monos (auto) 0.7 10^3/uL (0.1-1.4) 02/15/20 20:44 Absolute Eos (auto) 0.1 10^3/uL (0.0-0.6) 02/15/20 20:44 Absolute Basos (auto) 0.1 10^3/uL (0.0-0.2) 02/15/20 20:44 Seg Neutrophils % 76.9 % (42-78) 02/15/20 20:44 Sodium 138.8 mmol/L (137-145) 02/17/20 08:13 Potassium 4.3 mmol/L (3.6-5.0) 02/17/20 08:13 Chloride 110 mmol/L (98-107) H 02/17/20 08:13 Carbon Dioxide 21 mmol/L (22-30) L 02/17/20 08:13 Anion Gap 8 (5-19) 02/17/20 08:13 BUN 29 mg/dL (7-20) H 02/17/20 08:13 Creatinine 1.42 mg/dL (0.52-1.25) H 02/17/20 08:13 Est GFR ( Amer) 58 (>60) L 02/17/20 08:13 Est GFR (MDRD) Non-Af 48 (>60) L 02/17/20 08:13 Glucose 91 mg/dL (75-110) 02/17/20 08:13 Calcium 8.5 mg/dL (8.4-10.2) 02/17/20 08:13 Magnesium 2.6 mg/dL (1.6-2.3) H 02/15/20 20:44 Total Bilirubin 0.5 mg/dL (0.2-1.3) 02/15/20 20:44 Direct Bilirubin 0.2 mg/dL (0.0-0.4) 02/15/20 20:44 Neonat Total Bilirubin Not Reportable 02/15/20 20:44 Neonat Direct Bilirubin Not Reportable 02/15/20 20:44 Neonat Indirect Bili Not Reportable 02/15/20 20:44 AST 43 U/L (17-59) 02/15/20 20:44 ALT 36 U/L (<50) 02/15/20 20:44 Alkaline Phosphatase 106 U/L (38-126) 02/15/20 20:44 Troponin I < 0.012 ng/mL 02/17/20 13:28 Total Protein 7.6 g/dL (6.3-8.2) 02/15/20 20:44 Albumin 4.3 g/dL (3.5-5.0) 02/15/20 20:44 Lipase 197.6 U/L (23-300) 02/15/20 20:44 TSH 7.00 uIU/mL (0.47-4.68) H 02/15/20 20:44 Free T4 0.66 ng/dL (0.78-2.19) L 02/15/20 20:44 Free T3 pg/mL 1.87 pg/mL (2.77-5.27) L 02/15/20 20:44 Urine Color YELLOW 02/15/20 21:56 Urine Appearance SLIGHTLY-CLOUDY 02/15/20 21:56 Urine pH 5.0 (5.0-9.0) 02/15/20 21:56 Ur Specific [place] 1.016 02/15/20 21:56 Urine Protein 30 mg/dL (NEGATIVE) H 02/15/20 21:56 Urine Glucose (UA) NEGATIVE mg/dL (NEGATIVE) 02/15/20 21:56 Urine Ketones NEGATIVE mg/dL (NEGATIVE) 02/15/20 21:56 Urine Blood NEGATIVE (NEGATIVE) 02/15/20 21:56 Urine Nitrite NEGATIVE (NEGATIVE) 02/15/20 21:56 Urine Bilirubin NEGATIVE (NEGATIVE) 02/15/20 21:56 Urine Urobilinogen NEGATIVE mg/dL (<2.0) 02/15/20 21:56 Ur Leukocyte Esterase NEGATIVE (NEGATIVE) 02/15/20 21:56 Urine WBC (Auto) 1 /HPF 02/15/20 21:56 Calcium Oxalate Cr Auto MODERATE /HPF 02/15/20 21:56 Urine Mucus (Auto) RARE /LPF 02/15/20 21:56 Urine Ascorbic Acid NEGATIVE (NEGATIVE) 02/15/20 21:56 Influenza A (Rapid) NEGATIVE (NEGATIVE) 02/15/20 23:35 Influenza B (Rapid) NEGATIVE (NEGATIVE) 02/15/20 23:35 Group A Strep Rapid NEGATIVE (NEGATIVE) 02/15/20 21:01 02/15/20 02/17/20 20:44 13:28 Troponin I 0.016 < 0.012 EKG Comments: Sinus rhythm with rate of 71bpm. RBBB and LAFB Impressions: Acute Abdomen Series 02/15/20 18:55 IMPRESSION: 1. No evidence of intestinal obstruction or other acute intra-a bdominal process. 2. Formed stool throughout the colon suggestive of constipation. Abdomen/Pelvis CT 02/15/20 22:16 IMPRESSION: 1.2 cm obstructing calculus distal left ureter with moderate hydronephrosis hydroureter and a delayed nephrogram Progressive enlargement of the prostate. Head CT 02/15/20 23:56 IMPRESSION: 1. No acute intracranial abnormalities. Nonspecific white matter change most likely small vessel ischemic disease, age indeterminate. 2. CT is insensitive for early evaluation of acute stroke. If there is clinical concern for acute ischemia, an MRI may be considered. Plan Plan of Treatment: Generalized weakness: Likely secondary to dehydration secondary to GI loss. Potentially secondary to poorly controlled hypothyroidism as well. Improvement with fluids. Weightloss: Gradual weight loss over past serval months. Quite possibly may be secondary to change in lifestyle with increased movement daily at work. No acute findings on imaging, labs or physical exam. Consider follow up for further evaluation with PCP. Acute kidney injury: Likely due to GI loss/dehydration with recent hx of NV and loose stools. Admission BUN/CR: 35/1.68 -> 29/1.42 with IVF. Metabolic Acidosis: Low CO2 on chemistries likely secondary to dehydration. Improved with IVF. History COVID-19 infection: >1 month ago, mild sxs, not requiring hospitalization, low suspicion current infection, not tested, no tx necessary Ureteral calculus, left: Asymptomatic. IncidNonubstructing.ental finding. Pt made aware. Consider f/u with urology. Heart murmur: Audible +2 diastoic murmur at apex. F/u with PCP. F/u with cardiology, consider Echo. Hypothyroidism: With recent increase in Levothyroxine dose x2 months ago to .125mcg daily. TSH 7, FT4 0.66. Increase Levothyroxine .150mcg. Recommend f/u testing with PCP to ensure appropriate dose. Follow up with PCP within one week of discharge from hospital. Time Spent: Greater than 30 Minutes Stroke Is this a Stroke Patient?: No Acute Heart Failure Is this a Heart Failure Patient?: No
[2020-02-17 16:30] VITALS: BP 127/68
== END 2020-02-17 17:30 | disposition home or self-care (01) ==
LOC: ER 18:17 → EH 02-16 02:57 → ICU 02-16 06:14 → 4N 02-16 15:21
PROVIDERS: ADMIT Student in an Organized Health Care Education/Training Program; ATTEND Physician Assistant
DX: E03.9 Hypothyroidism, unspecified (principal); N17.9 Acute kidney failure, unspecified; R63.4 Abnormal weight loss; E87.2 Acidosis; N13.2 Hydronephrosis with renal and ureteral calculous obstruction; R53.1 Weakness; E86.0 Dehydration; R01.1 Cardiac murmur, unspecified; R51.9 Headache, unspecified; M54.2 Cervicalgia; M43.6 Torticollis; R50.9 Fever, unspecified; I10 Essential (primary) hypertension; Z86.19 Personal history of other infectious and parasitic diseases; F32.9 Major depressive disorder, single episode, unspecified; Z79.899 Other long term (current) drug therapy; Z66 Do not resuscitate; Z79.890 Hormone replacement therapy; Z98.84 Bariatric surgery status; M19.90 Unspecified osteoarthritis, unspecified site; Z87.442 Personal history of urinary calculi
CPT/HCPCS: 93005; 99285; 36415 ×3; 87040; 87070; 84439; 87880; 83690; 83735; 84443; 85025; 85027; 80048 ×2; 80053; 81001; 84484 ×2; 84481; 87804; 74022; 70450; 74177; 93010; G0378 ×2; A9270 ×13; J1644 ×2; J7030; J7120 ×3; J3490

== ENCOUNTER 2020-04-25 07:06 | Day surgery (SDC) | payer MEDICARE ==
[2020-04-25] MEDS ORDERED: PROPOFOL INJ 200 MG/20 ML VIAL IV ONE (07:12)
[2020-04-25 10:13] VITALS: BP 133/50
--- NOTE | 2020-04-25 11:44 | Operative Report ---
Operative Report DATE OF SURGERY: 04/25/20 Operative Report: The risk, benefits and alternatives of the procedure including the risk of bleeding, perforation requiring surgery have been explained to the patient in detail and informed consent is obtained. Patient is placed in left, lateral decubital position. Timeout was called. Propofol medication is administered. Rectal examination is done which did not reveal any masses, tears or fissures. An Olympus videoscope was introduced into the patient's rectum. Scope was then carefully advanced all the way to the cecum. The cecum was identified by the usual anatomical landmarks including the ileocecal valve as well as the appendiceal office. Photodocumentation is obtained. Scope was then sequentially pulled back via the various segments of the colon including the ascending colon, hepatic flexure, transverse colon, splenic flexure, descending colon and finally into the rectosigmoid portions of the colon. Retroflexion maneuver is performed. The risks benefits and alternatives of the procedure explained to the patient in detail and informed consent is obtained.A GIF Olympus video scope was inserted into the patient's mouth and hypopharynx, the esophagus is identified intubated and insufflated ,the scope was then advanced through the esophagus stomach and duodenum ,retroflexion maneuver is done ,the esophagus stomach and first and second portions of the duodenum examined PREOPERATIVE DIAGNOSIS: Weight loss, colorectal cancer screening POSTOPERATIVE DIAGNOSIS: Right side colon Inflammation status post biopsy. Diverticulosis. Internal hemorrhoids. Gastritis status post biopsy rule out Helicobacter pylori OPERATION: Colonoscopy with biopsy. EGD with biopsy SURGEON: GAIL REGAN ANESTHESIA: LMAC TISSUE REMOVED OR ALTERED: As noted above COMPLICATIONS: None. ESTIMATED BLOOD LOSS: None. INTRAOPERATIVE FINDINGS: As noted above. PROCEDURE: Patient tolerated the procedure well. No immediate postprocedure complications are noted. Patient is discharged in good condition. Discharge date 04/25/2020. Discharge diet: Regular. Discharge activity: Regular. 2 to 3-week follow-up to discuss findings. Patient is instructed call the office or proceed to the emergency room should there be any further problems questions. Wait on the pathology. Depending on the pathology 5 to 7-year surveillance colonoscopy.
== END 2020-04-25 10:35 | disposition home or self-care (01) ==
LOC: OROUT 07:06
PROVIDERS: ATTEND Internal Medicine Gastroenterology
DX: K29.50 Unspecified chronic gastritis without bleeding (principal); K57.90 Diverticulosis of intestine, part unspecified, without perforation or abscess without bleeding; K64.8 Other hemorrhoids; K52.9 Noninfective gastroenteritis and colitis, unspecified; I10 Essential (primary) hypertension; E03.9 Hypothyroidism, unspecified; K21.9 Gastro-esophageal reflux disease without esophagitis; G47.33 Obstructive sleep apnea (adult) (pediatric); R15.9 Full incontinence of feces; Z98.84 Bariatric surgery status; Z79.899 Other long term (current) drug therapy
CPT/HCPCS: 43239; 45380; 88305 ×2; J2704; 813